=== PATIENT | male | born 1945 | race Caucasian/White ===

== ENCOUNTER 2019-07-09 12:48 | Observation (INO) | payer MEDICARE ==
[~2019-07-09] VITALS: Ht 193 cm; Wt 98.9 kg
[2019-07-09 13:34] LABS: BASO % 0.2 % (0.0-2.0); EOS % 0.3 % (0-4.0); GRAN # 7.4 (1.4-6.5); GRAN % 74.7 % (42.2-75.2); HEMOGLOBIN 11.5 g/dl (13.5-18.0); LYMPH # 1.3 (1.2-3.4); LYMPH % 12.7 % (20.0-51.0); MEAN CELL VOLUME 98 fl (80.0-100.0); MEAN CORPUSCULAR HEMOGLOBIN 35 pg (27.0-31.0); MEAN CORPUSCULAR HGB CONC 36 g/dl (33.0-37.0); MEAN PLATELET VOLUME 8.2 fl (7.4-10.4); MONO # 1.1 (0.1-0.6); MONO % 11.5 % (1.7-9.3); PLATELET COUNT 224 K/mm3 (130-400); RED BLOOD COUNT 3.26 M/mm3 (4.20-5.60); REDCELL DISTRIBUTION WIDTH-CV 13.6 % (11.5-14.5)
[2019-07-09 13:42] LABS: HEMATOCRIT 31.8 % (42.0-52.0)
[2019-07-09 13:46] LABS: ALBUMIN 3.6 gm/dL (3.5-5.0); BILIRUBIN,TOTAL 0.8 mg/dL (0.0-1.0); CALCIUM 8.8 mg/dL (8.4-10.2); CREATININE, serum 0.82 (0.66-1.25); TOTAL PROTEIN 6.5 gm/dL (6.4-8.2)
[2019-07-09] MEDS ORDERED: K-DUR20 MEQ PO (14:37)
[2019-07-09] MEDS ORDERED: PRINIVIL20 MG PO (14:37)
[2019-07-09] MEDS ORDERED: BACTRIM DS 8001 TAB PO (14:38)
[2019-07-09 14:57] LABS: PROTHROMBIN TIME 11.3 SECONDS (9.7-12.8)
[2019-07-09 17:31] VITALS: BP 116/79; PULSE 71; TEMP 98.6
[2019-07-09 19:22] VITALS: BP 94/57; PULSE 75; TEMP 98.2
--- NOTE | 2019-07-09 19:26 | NUR ---
Patient is sitting up in bed, just finished supper. Call light and personal items are witihn reach.
--- NOTE | 2019-07-09 20:30 | NUR ---
Initial shift assessment done- Denies pain, IV fluids of LR at 125cc/hr, Has Valerio with CBI - Urine light pink-clear , no clots noted. Did get his Nicotine patch patch tonight as requested-
[2019-07-09 23:38] VITALS: BP 96/60; PULSE 74; TEMP 98.7
[2019-07-10 03:22] VITALS: BP 91/64; PULSE 75; TEMP 98.7
--- NOTE | 2019-07-10 05:40 | NUR ---
Did not get much sleep last night- is resting better at this time, CBI continuing- much slower rate now , urine remains clear, light pink, no clots Pt has had 2 episodes of loose stool/diarrhea this shift-
[2019-07-10 06:09] LABS: BASO % 0.3 % (0.0-2.0); EOS # 0.1 (0.0-0.7); EOS % 1.6 % (0-4.0); GRAN # 4.2 (1.4-6.5); GRAN % 60.9 % (42.2-75.2); HEMOGLOBIN 10.4 g/dl (13.5-18.0); LYMPH # 1.6 (1.2-3.4); LYMPH % 23.9 % (20.0-51.0); MEAN CELL VOLUME 100 fl (80.0-100.0); MEAN CORPUSCULAR HEMOGLOBIN 35 pg (27.0-31.0); MEAN CORPUSCULAR HGB CONC 35 g/dl (33.0-37.0); MEAN PLATELET VOLUME 8.6 fl (7.4-10.4); MONO # 0.9 (0.1-0.6); MONO % 12.7 % (1.7-9.3); PLATELET COUNT 228 K/mm3 (130-400); RED BLOOD COUNT 2.98 M/mm3 (4.20-5.60); REDCELL DISTRIBUTION WIDTH-CV 13.8 % (11.5-14.5)
[2019-07-10 06:12] LABS: HEMATOCRIT 29.7 % (42.0-52.0)
[2019-07-10 06:23] LABS: ALBUMIN 2.9 gm/dL (3.5-5.0); BILIRUBIN,TOTAL 0.9 mg/dL (0.0-1.0); CALCIUM 8.4 mg/dL (8.4-10.2); CREATININE, serum 0.63 (0.66-1.25); TOTAL PROTEIN 5.6 gm/dL (6.4-8.2)
[2019-07-10 07:15] VITALS: BP 111/72; PULSE 63; TEMP 98.4
--- NOTE | 2019-07-10 08:29 | NUR ---
Assessment completed, alert/oriented, vital signs stable, denies pain or discomfort, CBI running/ output is clear and no clots observed at this time, hemaglobin stable, heart RRR, lungs CTA/ no resp.difficulty, discussed plan of care
[2019-07-10 12:10] VITALS: BP 110/72; PULSE 77; TEMP 98.7
--- NOTE | 2019-07-10 16:15 | NUR ---
Plan is to return home with Son's checking on him. Resides alone, spouse passed about this year-February. Patient reports that he will have a family member transport him home if it is not to late. Fazal indicated that his son Wang is emr contact and Son Tyler is DPOA at . Patient indicated he uses [facility] in [place] where he resides. PCP is Dr. Camilo with a flup with Dr. Thomas. No DME's reported. Nothing follows
--- NOTE | 2019-07-10 17:28 | NUR ---
prime and pull completed and CBI/ catheter removed, 6 bottle routine/ urine red tinged but clear and no clots, discharge orders reviewed with the patient and his son, instructed to drink plenty of water tonight to keep bladder flushing, explained office will call him tommorow to schedule Cysoscopy, IV removed, he is ambulatory and leaving with family, I personally escorted them out the door
== END 2019-07-10 17:36 | disposition home or self-care (01) ==
LOC: COL.ER 12:48 → MEDICAL 14:18
PROVIDERS: Emergency Medicine; ADMIT Urology
DX: R31.0 Gross hematuria (principal); F41.9 Anxiety disorder, unspecified; D64.9 Anemia, unspecified; J44.9 Chronic obstructive pulmonary disease, unspecified; E78.5 Hyperlipidemia, unspecified; I10 Essential (primary) hypertension; Z80.42 Family history of malignant neoplasm of prostate; F17.210 Nicotine dependence, cigarettes, uncomplicated
CPT/HCPCS: G0378; J3010; J7120

== ENCOUNTER 2019-07-18 09:17 | Day surgery (SDC) | payer MEDICARE ==
[~2019-07-18] VITALS: Ht 190.5 cm; Wt 92.9 kg
[2019-07-18] VITALS (10 sets, daily range): BP systolic 124–152; BP diastolic 55–102; PULSE 80–104; TEMP 97.8–98.3
[~2019-07-18 09:17] MED LIST: BACTRIM DS 8001 TAB PO; K-DUR20 MEQ PO; PRINIVIL20 MG PO
[2019-07-18] MEDS ORDERED: PRINZIDE 25 MG-1 TAB PO (12:58)
--- NOTE | 2019-07-18 14:12 | NUR ---
Assisted patient to restroom, voids, returns to room.
--- NOTE | 2019-07-18 14:55 | NUR ---
Patient to OR with WOOD Ellison at this time.
--- NOTE | 2019-07-18 17:21 | NUR ---
Contacted Dr. Thomas for diet order. Patient is to have mitomycin, Patient is to continue on CBI after mitomycin instilation.
--- NOTE | 2019-07-18 19:19 | NUR ---
Patient has done well this afternoon. Alert and oriented x 3. Denies pain at this time. Valerio to dependent drainge with clear pink urine in bag. CBI infusing at a moderate rate, Mitomycin infused by supervisor hide house per orders. Post op VSS. Denies further needs at this time. Reported off to maintenance technician 2nd shift.
--- NOTE | 2019-07-18 20:00 | NUR ---
Report received. Assumed care for scene shifter. Assessment complete. VS stable. Denies pain. Denies nausea-tolerating PO. Currently receiving MITOMYCIN. Plan of care discussed for CBI. Requesting sleeping pill later tonight. Denies needs. Call light in reach. Bed in low. Wheels locked. Will monitor.
--- NOTE | 2019-07-18 20:12 | NUR ---
Mitomycin completed. Patient tolerated very well. No c/o's burning or pain. Valerio bag changed and restarted CBI. Reported off to patients nurse
--- NOTE | 2019-07-19 00:30 | NUR ---
Resting eyes closed. CBI infusing at a moderate rate with light pink return to rodriguez bag. No s/s of pain noted. Will continue to monitor.
--- NOTE | 2019-07-19 04:00 | NUR ---
Did not rest much this shift even with Ambien at HS. Denies pain or nausea. CBI running at a slow rate and continues to be light yellow-no clots or blood. Tolerating PO-has been INT'd. Received mytomycin-finished early shift on 07/18/19 by house decorator. Denies needs. Call light in reach. Bed in low position. Encouraged to call for questions or concerns. Verbalizes understanding. Will monitor.
[2019-07-19 04:07] VITALS: BP 125/81; PULSE 76; TEMP 98.4
--- NOTE | 2019-07-19 06:50 | NUR ---
Report given to WOOD Styles
[2019-07-19 07:20] VITALS: BP 137/80; PULSE 77; TEMP 98.1
[2019-07-19 07:31] VITALS: BP 124/68; PULSE 86; TEMP 97.4
[2019-07-19] MEDS ORDERED: PRINIVIL20 MG PO (07:53)
--- NOTE | 2019-07-19 09:29 | NUR ---
LESLIE met with the patient to discuss discharge plan. The patient lives alone in [place]. He states that his just in February and that his son, Darryl, lives in [place]. He reports independence with ADLs and does not have any DME. The patient's PCP is Dr. Uziel Lee and he receives his medications at the [facility] in [place]. He reports no difficulties obtaining his meds. The patient does not have advanced directives in EMR, but he states that he does have them completed and at home. He states that his son, Darryl Parson (ph#[phone]), is his DPOA-HC. The patient plans to return home upon discharge. No additional needs at this time.
--- NOTE | 2019-07-19 10:52 | NUR ---
Initial visit; Patient thanked Stone Spreader Operator for looking in on him and offering God's blessings.
--- NOTE | 2019-07-19 11:00 | NUR ---
Valerio catheter discontinued. Patient tolerated well. Explained 6 cup routine. Patient denies pain and nausea at this time. Encouraged patient to drink more fluids, explained his urine output is a little low. No other changes at this time. Call light within reach.
[2019-07-19 12:03] VITALS: BP 138/92; PULSE 81; TEMP 98.1
--- NOTE | 2019-07-19 15:50 | NUR ---
Patient is discharging home. Notified Dr Thomas that patients urine output is a little low but that his urine is yellow and clear, he ordered patient to discharge. Patients urine output has picked up, reminded patient to continue to drink fluids at home. Discharge instructions discussed with patient. No questions verbalized. INT discontinued. Explained Dr Thomas will call with results. All belongings packed up and sent with patient. Copies of discharge instructions given to patient. Patient walked out via wheel chair.
== END 2019-07-19 15:55 | disposition home or self-care (01) ==
LOC: SDCO 09:17 → SURG 09:17 → SDCO 07-19 15:55
DX: C67.9 Malignant neoplasm of bladder, unspecified (principal); N40.0 Benign prostatic hyperplasia without lower urinary tract symptoms; D64.9 Anemia, unspecified; J44.9 Chronic obstructive pulmonary disease, unspecified; E78.5 Hyperlipidemia, unspecified; I10 Essential (primary) hypertension; F17.210 Nicotine dependence, cigarettes, uncomplicated; G89.29 Other chronic pain; F32.9 Major depressive disorder, single episode, unspecified; F41.9 Anxiety disorder, unspecified; Z79.82 Long term (current) use of aspirin; Z82.49 Family history of ischemic heart disease and other diseases of the circulatory system
CPT/HCPCS: OP; J0360; J0690; J1100; J1170; J2405; J2704; J3010; J7120; J9280

== ENCOUNTER → 2019-08-16 | Outpatient (CLI) | payer MEDICARE ==
[~2019-08-16] MED LIST changes: +PRINZIDE 25 MG-1 TAB PO
== END ==
LOC: COL.VAS 10:01
DX: I82.432 Acute embolism and thrombosis of left popliteal vein (principal); I82.442 Acute embolism and thrombosis of left tibial vein; I82.890 Acute embolism and thrombosis of other specified veins

== ENCOUNTER 2020-08-29 12:12 | Day surgery (SDC) | payer MEDICARE, MEDICAID ==
[~2020-08-29] VITALS: Ht 190.5 cm; Wt 88.2 kg
[2020-08-29] VITALS (10 sets, daily range): BP systolic 131–158; BP diastolic 72–92; PULSE 61–85; TEMP 97.9–98.5
[2020-08-29] MEDS ORDERED: TRELEGY ELLIPT1 EACH IH (12:45)
[2020-08-29] MEDS ORDERED: ZOLOFT 100MG100 MG PO (12:45)
[2020-08-29] MEDS ORDERED: FLONASE NASAL S16 GM NS (12:45)
[2020-08-29] MEDS ORDERED: LASIX 20MG TABL20 MG PO (12:46)
[2020-08-29] MEDS ORDERED: LIPITOR 40MG TA40 MG PO (12:46)
[2020-08-29] MEDS ORDERED: NEURONTIN300 MG/CAP PO (12:46)
[2020-08-29] MEDS ORDERED: MELATONIN5 M1 PO (12:47)
--- NOTE | 2020-08-29 13:25 | NUR ---
Pt brought home medications. Medications taken to pharmacy for storage.
--- NOTE | 2020-08-29 15:43 | NUR ---
Patient to unit post TURBT at 1520. Valerio catheter patent draining clear yellow urine. No clots noted. CBI infusing at moderate rate. No complaints of pain or discomfort. Post op checks initiated.
--- NOTE | 2020-08-29 19:12 | NUR ---
Received report from Olimpia. Seen patient awake, lying in bed. He is alert and oriented. With INT on left hand. With CBI infusing at moderate rate. Call light within reach. He denies pain.
--- NOTE | 2020-08-30 01:00 | NUR ---
This nurse and Chinyere RN checked on patient's output. 2nd bag of irrigation started on moderate rate. Output on pinkish red in color. He denies pain.
[2020-08-30 04:28] VITALS: BP 137/84; PULSE 55; TEMP 98.1
--- NOTE | 2020-08-30 06:33 | NUR ---
Patient had uneventful night. CBI is on moderate infusion. Urine is pinkish in color. He denies pain. He has been drinking fluids well.
[2020-08-30 07:34] VITALS: BP 150/86; PULSE 64; TEMP 97.7
--- NOTE | 2020-08-30 09:02 | NUR ---
First visit from the exterior work helper. No needs right now.
--- NOTE | 2020-08-30 09:20 | NUR ---
Rodriguez catheter discontinued. Primed catheter with 200ml of saline. Removed 20ml from catheter balloon and removed rodriguez catheter. Patient tolerated well. Explained that he has to void a few times before discharging to make sure he voiding without issues. Patient verbalized understanding. Chasity-care provided. Patient denies pain and nausea at this time. Call light within reach.
[2020-08-30 12:58] VITALS: BP 138/90; PULSE 84; TEMP 98.2
--- NOTE | 2020-08-30 13:20 | NUR ---
Patient is discharging home. Discharge instructions discussed with patient. No questions verbalized. Explained when his follow up appointment is. Copies of discharge instructions given to patient. INT discontinued. All belongings packed up and sent with patient. Patient walked out via wheel chair by Álvaro MILNER.
== END 2020-08-30 13:15 | disposition home or self-care (01) ==
LOC: SURG 12:12 → SDCO 12:12 → SURG 15:30 → SDCO 08-30 13:15
DX: C67.4 Malignant neoplasm of posterior wall of bladder (principal); C67.5 Malignant neoplasm of bladder neck; D64.9 Anemia, unspecified; F41.9 Anxiety disorder, unspecified; J44.9 Chronic obstructive pulmonary disease, unspecified; E78.5 Hyperlipidemia, unspecified; I10 Essential (primary) hypertension; R41.3 Other amnesia; Z79.01 Long term (current) use of anticoagulants; F17.210 Nicotine dependence, cigarettes, uncomplicated; Z86.718 Personal history of other venous thrombosis and embolism; G89.29 Other chronic pain; Z79.82 Long term (current) use of aspirin
CPT/HCPCS: OP; C1769; J0690; J1100; J2405; J2704; J3010; J7120; Q9967